=== PATIENT | female | born 1955 | race Caucasian/White ===

== ENCOUNTER 2020-09-26 20:24 | Emergency (ER) | payer OTHER ==
[~2020-09-26] VITALS: Ht 160 cm; Wt 88.0 kg
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
[2020-09-26] MEDS ORDERED: ORPHENADRINE CITRATE 60 MG/2 ML VIAL. IM ONE (22:00)
[2020-09-26] MEDS ORDERED: KETOROLAC 60 MG/2 ML VIAL. IM ONE (22:00)
[2020-09-26] MEDS: IV RINGERS SOLUTION,LACTATED 1,000 ML IV SCH ×2 (22:00→22:40)
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
--- NOTE | 2020-09-26 22:43 | RAD ---
Exam: Left knee 4 views INDICATION: Pain TECHNIQUE: Frontal, lateral, oblique and sunrise views of the left knee Comparisons: None FINDINGS: Diffuse osteopenia. Soft tissues are unremarkable. No acute or healed fractures. There is tricompartm ental osteoarthritic change at the knee, greatest at the lateral compartment. IMPRESSION: No acute osseous abnormality. Degenerative changes as described above. Electronically signed by: Jocelyne Ryder MD (09/26/2020 10:40 PM) [facility]
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
[2020-09-26 23:12] LABS: CALCIUM 9.2 mg/dL (8.5-10.1); CREATININE 0.9 mg/dL (0.6-1.0); GFR 63.2; POTASSIUM 3.8 mmol/L (3.5-5.1)
[2020-09-26 23:16] LABS: BASO # 0.1 x10^3/uL (0.0-0.2); BASO % 1 % (0-3); EOS # 0.4 x10^3/uL (0.0-0.7); EOS % 6 % (0-3); HEMATOCRIT 40.6 % (36.0-47.0); HEMOGLOBIN 13.1 g/dL (12.0-15.5); LYMPH # 2.9 x10^3/uL (1.0-4.8); LYMPH % 42 % (24-48); MEAN CORPUSCULAR HEMOGLOBIN 29 pg (25-35); MEAN CORPUSCULAR HGB CONC 32 g/dL (31-37); MEAN CORPUSCULAR VOLUME 90 fL (79-100); MONO # 0.7 x10^3/uL (0.0-1.1); MONO % 10 % (0-9); NEUT # 2.8 x10^3uL (1.8-7.7); NEUT % 41 % (31-73); PLATELET COUNT 215 x10^3/uL (140-400); RED BLOOD COUNT 4.53 x10^6/uL (3.50-5.40); RED CELL DISTRIBUTION WIDTH 13.7 % (11.5-14.5); WHITE BLOOD COUNT 6.8 x10^3/uL (4.0-11.0)
[2020-09-26 23:19] LABS: MAGNESIUM 2.2 mg/dL (1.8-2.4)
[2020-09-27] MEDS ORDERED: HYDR-1179 PO (00:12)
[2020-09-27] MEDS ORDERED: CYCL-331 PO (00:12)
[2020-09-27 00:15] VITALS: BP 166/68
--- NOTE | 2020-09-28 09:54 | EKG ---
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
== END 2020-09-27 00:38 | disposition home or self-care (01) ==
LOC: ER 20:24
DX: S20.219A Contusion of unspecified front wall of thorax, initial encounter (principal); S80.02XA Contusion of left knee, initial encounter; S20.229A Contusion of unspecified back wall of thorax, initial encounter; M54.5 Low back pain; M53.3 Sacrococcygeal disorders, not elsewhere classified; M19.09 Primary osteoarthritis, other specified site; M19.90 Unspecified osteoarthritis, unspecified site; I25.10 Atherosclerotic heart disease of native coronary artery without angina pectoris; E78.00 Pure hypercholesterolemia, unspecified; V43.52XA Car driver injured in collision with other type car in traffic accident, initial encounter; Y93.I9 Activity, other involving external motion; Y92.488 Other paved roadways as the place of occurrence of the external cause; Y99.8 Other external cause status
CPT/HCPCS: 36415; 71045; 72131; 73564; 80048; 82550; 83735; 84443; 84484; 85025; 93005; 96360; 96361; 96372; 99285; J1885; J2360; J7120